=== PATIENT | female | born 1995 ===

== ENCOUNTER 2020-09-05 19:06 | Emergency (ER) | payer SELFPAY ==
[2020-09-05 19:44] VITALS: BP 125/83
--- NOTE | 2020-09-05 20:31 | ER Document Report ---
ED Medical Screen (RME) - General Chief Complaint: OB Problem (<20wks) Stated Complaint: VAGINAL BLEEDING/SPOTTING Time Seen by Provider: 09/05/20 20:23 - HPI Notes: 09/05/20 20:29 24-year-old female G3, P1 LMP 06/27/2020 with a positive test on 07/27/2020 presents to the emergency room today for complaints of vaginal bleeding that started today, states she had a copious amount of vaginal bleeding with blood clots in the toilet today. Denies any trauma. She is unsure she is miscarrying. Has not been seen by an OPERATING COST CLERK, is never had any serum hCG testing or ultrasound done. Denies any fevers chills, nausea vomiting diarrhea. Does not know her blood type. Denies any abdominal pain, lower back pain flank pain I have greeted and performed a rapid initial assessment of this patient. A comprehensive ED assessment and evaluation of the patient, analysis of test results and completion of the medical decision making process will be conducted by additional ED providers. PHYSICAL EXAMINATION: GENERAL: Well-appearing, well-nourished and in no acute distress. CV: s1, s2 regular LUNGS: No respiratory distress abd: no suprapubic tenderness Physical Exam - Vital signs Vitals: Temp Pulse Resp BP Pulse Ox 99.1 F 85 16 125/83 100 09/05/20 19:43 09/05/20 19:43 09/05/20 19:43 09/05/20 19:43 09/05/20 19:43 Course - Vital Signs Vital signs: Temp Pulse Resp BP Pulse Ox 99.1 F 85 16 125/83 100 09/05/20 19:43 09/05/20 19:43 09/05/20 19:43 09/05/20 19:43 09/05/20 19:43
[2020-09-06 00:34] LABS: APPEARANCE,URINE CLOUDY; BILIRUBIN,URINE NEGATIVE (NEGATIVE); COLOR,URINE RED; GLUCOSE, URINE NEGATIVE (NEGATIVE); KETONES,URINE TRACE mg/dL (NEGATIVE); LEUKOCYTE ESTERASE,URINE NEGATIVE (NEGATIVE); NITRITE,URINE NEGATIVE (NEGATIVE); PROTEIN,URINE 100 mg/dL (NEGATIVE); URINE SPECIFIC GRAVITY 1.025
[2020-09-06 00:41] LABS: ABSOLUTE EOSINOPHILS # (AUTO) 0.1 10^3/uL (0.0-0.6); ABSOLUTE LYMPHOCYTES (AUTO) 2.3 10^3/uL (0.5-4.7); ABSOLUTE MONOCYTES (AUTO) 0.6 10^3/uL (0.1-1.4); ABSOLUTE NEUT (AUTO) 4.5 10^3/uL (1.7-8.2); BASOPHILS % (AUTO) 0.3 % (0-2); EOSINOPHILS % (AUTO) 1.7 % (0-6); HEMATOCRIT 42.2 % (36.0-47.0); HEMOGLOBIN 14.6 g/dL (12.0-15.5); LYMPHOCYTES % (AUTO) 30.6 % (13-45); MEAN CORPUSCULAR HEMOGLOBIN 30.7 pg (27.0-33.4); MEAN CORPUSCULAR HGB CONC 34.6 g/dL (32.0-36.0); MEAN CORPUSCULAR VOLUME 89 fl (80-97); MONOCYTES % (AUTO) 7.8 % (3-13); PLATELET COUNT 259 10^3/uL (150-450); RED BLOOD COUNT 4.76 10^6/uL (3.72-5.28); RED CELL DISTRIBUTION WIDTH 12.8 % (11.5-14.0); SEGMENTED NEUTROPHILS % (AUTO) 59.6 % (42-78); TOTAL CELLS COUNTED % (AUTO) 100 %; WHITE BLOOD COUNT 7.5 10^3/uL (4.0-10.5)
[2020-09-06 01:09] LABS: ALBUMIN 4.8 g/dL (3.5-5.0); ALKALINE PHOSPHATASE 54 U/L (38-126); ANION GAP 12 (5-19); ASPARTATE AMINO TRANSFERASE 27 U/L (14-36); BILIRUBIN,DIRECT 0.1 mg/dL (0.0-0.4); BLOOD UREA NITROGEN 17 mg/dL (7-20); CALCIUM 9.7 mg/dL (8.4-10.2); CARBON DIOXIDE 23 mmol/L (22-30); CHLORIDE 105 mmol/L (98-107); GLUCOSE 96 mg/dL (75-110); POTASSIUM 4.1 mmol/L (3.6-5.0); TOTAL PROTEIN 7.8 g/dL (6.3-8.2)
--- NOTE | 2020-09-06 02:37 | ER Document Report ---
Doctor's Note Notes: 09/06/20 02:36 I was notified by the nurse in triage of the patient's findings of a negative quantitative hCG. I did review this patient's triage note and laboratory findings. Triage nurse had come to me asking whether or not ultrasound was necessary at this point. I asked that the patient be placed in a triage room and I could evaluate and interview her there. Upon going to the front, I was notified that it seems that the patient has left the department. She walked out to the parking lot. Triage nurse JENNIFER Wade, is aware that I will see the patient, will notify this provider if she returns. Otherwise, I did not interview or examine the patient.
== END 2020-09-06 05:31 | disposition left against medical advice (07) ==
LOC: ER 19:06
DX: N93.9 Abnormal uterine and vaginal bleeding, unspecified (principal); Z32.02 Encounter for pregnancy test, result negative; Z53.20 Procedure and treatment not carried out because of patient's decision for unspecified reasons
CPT/HCPCS: 36415; 80053; 81001; 84702; 85025; 86850; 86900; 86901; 99281